=== PATIENT | female | born 1990 | race Caucasian/White ===

== ENCOUNTER 2016-12-28 00:54 | Emergency (ER) | payer SELFPAY ==
[2016-12-28 02:23] LABS: ABSOLUTE EOSINOPHILS # (AUTO) 0.1 10^3/uL (0.0-0.6); ABSOLUTE LYMPHOCYTES (AUTO) 1.8 10^3/uL (0.5-4.7); ABSOLUTE MONOCYTES (AUTO) 0.6 10^3/uL (0.1-1.4); ABSOLUTE NEUT (AUTO) 6.6 10^3/uL (1.7-8.2); BASOPHILS % (AUTO) 0.5 % (0-2); EOSINOPHILS % (AUTO) 1.2 % (0-6); HEMATOCRIT 41.2 % (36.0-47.0); HEMOGLOBIN 13.5 g/dL (12.0-15.5); HGB HCT DIFFERENCE -0.7; LYMPHOCYTES % (AUTO) 19.5 % (13-45); MEAN CORPUSCULAR HEMOGLOBIN 29.6 pg (27.0-33.4); MEAN CORPUSCULAR HGB CONC 32.7 g/dL (32.0-36.0); MEAN CORPUSCULAR VOLUME 91 fl (80-97); MONOCYTES % (AUTO) 6.1 % (3-13); RED BLOOD COUNT 4.55 10^6/uL (3.72-5.28); RED CELL DISTRIBUTION WIDTH 14.1 % (11.5-14.0); SEGMENTED NEUTROPHILS % (AUTO) 72.7 % (42-78); WHITE BLOOD COUNT 9.1 10^3/uL (4.0-10.5)
[2016-12-28 02:39] LABS: ANION GAP 10 (5-19); BLOOD UREA NITROGEN 12 mg/dL (7-20); CALCIUM 9.5 mg/dL (8.4-10.2); CARBON DIOXIDE 25 mmol/L (22-30); CHLORIDE 105 mmol/L (98-107); CREATININE RESULT 0.71 mg/dL (0.52-1.25); GLUCOSE 92 mg/dL (75-110); POTASSIUM 3.9 mmol/L (3.6-5.0); SODIUM 139.7 mmol/L (137-145)
--- NOTE | 2016-12-28 04:39 | ER Document Report ---
ED General - General Chief Complaint: Vaginal Bleeding Stated Complaint: VAGINAL BLEEDING Time Seen by Provider: 12/28/16 01:52 Notes: Patient is a 26 year old female last menstrual period was approximately 3 weeks ago who presents with vaginal bleeding. States that this started several hours prior to arrival. States that she has bled through 2-3 pads since onset of bleeding. No history of similar symptoms. Patient believes she is having a miscarriage although she has not had a positive test at home. Notes some associated diffuse abdominal cramping. Nothing improves or worsens her symptoms. She has not seen her primary care doctor regarding today's concerns. Denies any fever, vomiting, diarrhea, shortness of breath. TRAVEL OUTSIDE OF THE [place] IN LAST 30 DAYS: No - Related Data Allergies/Adverse Reactions: No Known Allergies Allergy (Verified 12/28/16 01:02) Past Medical History - General Information source: Patient Last Menstrual Period: 12/07/16 - Social History Smoking Status: Never Smoker Frequency of alcohol use: None Drug Abuse: None Lives with: Spouse/Significant other Family History: DM Neurological Medical History: Reports: Hx Seizures - x1 during last possible medication side effect Renal/ Medical History: Denies: Hx Peritoneal Dialysis - Immunizations Hx Diphtheria, Pertussis, Tetanus Vaccination: Yes Review of Systems - Review of Systems Notes: Constitutional: Negative for fever. HENT: Negative for sore throat. Eyes: Negative for visual changes. Cardiovascular: Negative for chest pain. Respiratory: Negative for shortness of breath. Gastrointestinal: Positive for abdominal discomfort Genitourinary: Positive for hematuria Musculoskeletal: Negative for back pain. Skin: Negative for rash. Neurological: Negative for headaches, weakness or numbness. 10 point ROS negative except as marked above and in HPI. Physical Exam - Vital signs Vitals: Temp Pulse Resp BP Pulse Ox 98.6 F 91 20 146/83 H 100 12/28/16 01:02 12/28/16 01:02 12/28/16 01:02 12/28/16 01:02 12/28/16 01:02 Interpretation: Hypertensive Notes: PHYSICAL EXAMINATION: GENERAL: Well-appearing, well-nourished and in no acute distress. HEAD: Atraumatic, normocephalic. EYES: Pupils equal round and reactive to light, extraocular movements intact, sclera anicteric, conjunctiva are normal. ENT: nares patent, oropharynx clear without exudates. Moist mucous membranes. NECK: Normal range of motion, supple without lymphadenopathy LUNGS: Breath sounds clear to auscultation bilaterally and equal. No wheezes rales or rhonchi. HEART: Regular rate and rhythm without murmurs ABDOMEN: Soft, nontender, normoactive bowel sounds. No guarding, no rebound. No masses appreciated. : Scant amount of vaginal bleeding, clot at the cervical os EXTREMITIES: Normal range of motion, no pitting or edema. No cyanosis. NEUROLOGICAL: No focal neurological deficits. Moves all extremities spontaneously and on command. PSYCH: Normal mood, normal affect. SKIN: Warm, Dry, normal turgor, no rashes or lesions noted. Course - Re-evaluation Re-evalutation: 12/28/16 04:44 Patient presents with a mild amount of vaginal bleeding in the setting of an early first trimester . Transvaginal ultrasound is unable to visualize an intrauterine at this time. Minimal bleeding at time of pelvic exam. Os could not be visualized secondary a clot. She is Rh positive. Patient's abdominal exam is otherwise benign without any focal tenderness. I do not suspect an acute appendicitis, pyelonephritis, cystitis, or bowel obstruction. At this time I have informed the patient that she needs to return to the emergency department or the women's clinic in 48 hours for recheck of her quantitative beta hCG to assess whether or not this is a normal or a possible ectopic .At this time will discharge with return precautions and follow-up recommendations. Verbal discharge instructions given a the bedside and opportunity for questions given. Medication warnings reviewed. Patient is in agreement with this plan and has verbalized understanding of return precautions and the need for primary care follow-up in the next 24-72 hours. - Vital Signs Vital signs: Temp Pulse Resp BP Pulse Ox 98.6 F 91 20 146/83 H 100 12/28/16 01:02 12/28/16 01:02 12/28/16 01:02 12/28/16 01:02 12/28/16 01:02 - Laboratory Result Diagrams: 12/28/16 02:14 12/28/16 02:14 Laboratory results interpreted by me: 12/28/16 12/28/16 02:14 02:14 RDW 14.1 H Beta HCG, Quant 4573.90 H - Diagnostic Test Radiology reviewed: Reports reviewed Discharge - Discharge Clinical Impression: of unknown anatomic location, Bleeding from genital tract during Condition: Good Disposition: HOME, SELF-CARE Additional Instructions: You need to return to the ED or the women's health clinic in 48 hours for a recheck of your hormone level. The ultrasound is unable to locate your at this time. Please return if you develop severe abdominal pain , bleeding that goes through more than 3 pads for more than 3 hours, pass out, or have any other symptoms that are concerning to you. Contact the Women's clinic on Thursday and ask for a Thursday appointment. Inform them that you were in the ED, have a of unknown location, and need a recheck of your hormone level and possibly a repeat ultrasound. Referrals: CARLOS BARNES MD [ACTIVE STAFF] - 12/30/16
--- NOTE | 2016-12-28 04:43 | RADIOLOGY REPORT (SQ) ---
EXAM DESCRIPTION: U/S OB TRANSVAGINAL W/O DOP COMPLETED DATE/TIME: 12/28/2016 4:20 am REASON FOR STUDY: bleeding, pos preg test COMPARISON: None. TECHNIQUE: Transvaginal static and realtime grayscale images acquired of the pelvis. Additional krysta cted color Doppler images recorded. All images stored on PACs. [facility] [place] LIMITATIONS: None. FINDINGS: UTERUS: The uterus measures 11.2 x 6.0 x 5.4 cm. The endometrium is heterogeneous with a hypoechoic area measuring 0.7 x 0.8 x 0.5 cm. A complex heterogeneous area at the external cervical os is measuring 3.3 x 2.5 cm. RIGHT ADNEXA: The right ovary measures 2.0 x 1.8 x 1.2 cm. Flow by Doppler was shown to the right ov marisa. No adnexal free fluid or adnexal masses were identified. LEFT ADNEXA: The left ovary measures 2.0 x 1.8 x 1.4 cm. Flow by Doppler was shown to the left ovary . No adnexal free fluid or adnexal masses were identified. FREE FLUID: None. IMPRESSION: Heterogeneous endometrium with a subcentimeter hypoechoic area, differential considerati ons include: blood products, early intrauterine gestational sac,pseudo gestational sac of a nonvisual ized ectopic . Followup ultrasound and serial beta HCG strongly recommended to accurately a ssess status. Complex heterogeneous area at the external cervical os, may represent blood products. Please correla te with clinical exam. TECHNICAL DOCUMENTATION: JOB ID: [id number] [employer]- All Rights Reserved
[2016-12-28 05:14] VITALS: BP 115/62
== END 2016-12-28 05:15 | disposition home or self-care (01) ==
LOC: ER 00:54
DX: O20.9 Hemorrhage in early pregnancy, unspecified (principal); O26.891 Other specified pregnancy related conditions, first trimester; R10.84 Generalized abdominal pain; Z3A.00 Weeks of gestation of pregnancy not specified
CPT/HCPCS: 36415; 76817; 80048; 84702; 85025; 99284

== ENCOUNTER 2017-01-23 13:29 | Inpatient (IN) | payer SELFPAY ==
--- NOTE | 2017-01-23 15:24 | ER Document Report ---
ED Medical Screen (RME) - General TRAVEL OUTSIDE OF THE U[place] IN LAST 30 DAYS: No <JAKI RIVAS - Last Filed: 01/23/17 14:54> <LILLY GOMEZ - Last Filed: 01/23/17 21:25> - General Chief Complaint: Abdominal Cramping Stated Complaint: ABDOMINAL CRAMPING Time Seen by Provider: 01/23/17 14:49 Notes: Patient is a 26 year old female presenting to the emergency department for abdominal cramping and some vaginal spotting. Patient was seen in December for a possible miscarriage. Patient did have a miscarriage at that time and yesterday she had her Hcg level checked yesterday and her levels were in the 1999s. Patient has had sexual intercourse since her miscarriage and has not had a regular menstrual cycle since. Patient is A1. Patient possibly has a new . (JAKI RIVAS) - Related Data Allergies/Adverse Reactions: No Known Allergies Allergy (Verified 01/23/17 13:49) Past Medical History Neurological Medical History: Reports: Hx Seizures - x1 during last possible medication side effect Renal/ Medical History: Denies: Hx Peritoneal Dialysis - Immunizations Hx Diphtheria, Pertussis, Tetanus Vaccination: Yes <JAKI RIVAS - Last Filed: 01/23/17 14:54> Physical Exam <JAKI RIVAS - Last Filed: 01/23/17 14:54> <LILLY GOMEZ - Last Filed: 01/23/17 21:25> - Vital signs Vitals: Temp Pulse Resp BP Pulse Ox 98.3 F 84 16 127/59 H 100 01/23/17 13:48 01/23/17 13:48 01/23/17 13:48 01/23/17 13:48 01/23/17 13:48 - Notes Notes: GENERAL: Alert, interacts well. No acute distress. LUNGS: Clear to auscultation bilaterally, no wheezes, rales, or rhonchi. No respiratory distress. HEART: Regular rate and rhythm. No murmurs, gallops, or rubs. ABDOMEN: Mild LLQ tenderness to palpation. Non-distended. Bowel sounds present in all 4 quadrants. (JAKI RIVAS) Course - Laboratory Result Diagrams: 01/23/17 15:35 01/23/17 15:35 <LILLY GOMEZ - Last Filed: 01/23/17 21:25> - Vital Signs Vital signs: Temp Pulse Resp BP Pulse Ox 98.3 F 86 16 130/70 H 97 01/23/17 13:48 01/23/17 18:35 01/23/17 18:35 01/23/17 18:35 01/23/17 18:35 - Laboratory Laboratory results interpreted by me: 01/23/17 01/23/17 01/23/17 15:00 15:35 15:35 Total Protein 8.3 H Beta HCG, Quant 2593.40 H Urine Blood SMALL H Urine Urobilinogen 2.0 H Doctor's Discharge <JAKI RIVAS - Last Filed: 01/23/17 14:54> <LILLY GOMEZ - Last Filed: 01/23/17 21:25> - Discharge Clinical Impression: Ovarian mass, right Scribe Documentation - Scribe Written by Scribe:: Finn Estevez 01/23/17 15:30 acting as scribe for :: Gilbert <JAKI RIVAS - Last Filed: 01/23/17 14:54>
[2017-01-23 15:45] LABS: ABSOLUTE BASOPHILS # (AUTO) 0.1 10^3/uL (0.0-0.2); ABSOLUTE EOSINOPHILS # (AUTO) 0.1 10^3/uL (0.0-0.6); ABSOLUTE LYMPHOCYTES (AUTO) 1.8 10^3/uL (0.5-4.7); ABSOLUTE MONOCYTES (AUTO) 0.4 10^3/uL (0.1-1.4); ABSOLUTE NEUT (AUTO) 6.9 10^3/uL (1.7-8.2); BASOPHILS % (AUTO) 0.6 % (0-2); EOSINOPHILS % (AUTO) 0.8 % (0-6); HEMATOCRIT 37.5 % (36.0-47.0); HEMOGLOBIN 12.6 g/dL (12.0-15.5); HGB HCT DIFFERENCE 0.3; LYMPHOCYTES % (AUTO) 19.7 % (13-45); MEAN CORPUSCULAR HEMOGLOBIN 29.8 pg (27.0-33.4); MEAN CORPUSCULAR HGB CONC 33.7 g/dL (32.0-36.0); MEAN CORPUSCULAR VOLUME 88 fl (80-97); MONOCYTES % (AUTO) 4.8 % (3-13); RED BLOOD COUNT 4.25 10^6/uL (3.72-5.28); RED CELL DISTRIBUTION WIDTH 13.7 % (11.5-14.0); SEGMENTED NEUTROPHILS % (AUTO) 74.1 % (42-78); WHITE BLOOD COUNT 9.3 10^3/uL (4.0-10.5)
[2017-01-23 16:00] LABS: ALANINE AMINOTRANSFERASE 29 U/L (9-52); ALBUMIN 4.7 g/dL (3.5-5.0); ALKALINE PHOSPHATASE 88 U/L (38-126); ANION GAP 11 (5-19); ASPARTATE AMINO TRANSFERASE 21 U/L (14-36); BILIRUBIN,DIRECT 0.3 mg/dL (0.0-0.4); BILIRUBIN,TOTAL 0.5 mg/dL (0.2-1.3); BLOOD UREA NITROGEN 12 mg/dL (7-20); CALCIUM 9.4 mg/dL (8.4-10.2); CARBON DIOXIDE 25 mmol/L (22-30); CHLORIDE 103 mmol/L (98-107); CREATININE RESULT 0.69 mg/dL (0.52-1.25); GLUCOSE 87 mg/dL (75-110); POTASSIUM 4.3 mmol/L (3.6-5.0); SODIUM 139.3 mmol/L (137-145); TOTAL PROTEIN 8.3 g/dL (6.3-8.2)
[2017-01-23 16:48] LABS: APPEARANCE,URINE CLEAR; BILIRUBIN,URINE NEGATIVE (NEGATIVE); GLUCOSE, URINE NEGATIVE (NEGATIVE); KETONES,URINE NEGATIVE (NEGATIVE); LEUKOCYTE ESTERASE,URINE NEGATIVE (NEGATIVE); NITRITE,URINE NEGATIVE (NEGATIVE); PROTEIN,URINE NEGATIVE (NEGATIVE); URINE SPECIFIC GRAVITY 1.014
--- NOTE | 2017-01-23 16:57 | RADIOLOGY REPORT (SQ) ---
EXAM DESCRIPTION: U/S OB TRANSVAG W/DOPPLER COMPLETED DATE/TIME: 01/23/2017 4:31 pm REASON FOR STUDY: preg, vag bld, cramping COMPARISON: 12/28/2016 TECHNIQUE: Dynamic and static grayscale images acquired of the pelvis via transvaginal approach and recorded on PACS. Additional selected color Doppler and spectral images recorded. LIMITATIONS: None. FINDINGS: UTERUS: Contour normal. No mass. ENDOMETRIAL STRIPE: No IUP is identified. CERVIX: No nabothian cysts. RIGHT OVARY: Complex cystic area is identified with internal echoes and debris measuring 5.0 x 5.2 x 4.7 cm. RIGHT OVARY DOPPLER: Normal arterial vascular flow without evidence for torsion. LEFT OVARY: Left ovary is not visualized. FREE FLUID: None noted. OTHER: No other significant finding. MEASUREMENTS: UTERUS: 10.2 x 6.1 x 6.2 cm RIGHT OVARY: 5.7 x 5.7 x 5.9 cm LEFT OVARY: Not visualized IMPRESSION: Complex cystic area in the right ovary as noted above. The differential possibilities w ould include a corpus lutein cyst or hemorrhagic cyst or other complex cyst, an endometrioma, and wit h an increasing HCG the possibility of an ectopic gestation cannot be excluded. No intrauterine IUP is identified. Clinical correlation and followup is recommended TECHNICAL DOCUMENTATION: JOB ID: [id number]- All Rights Reserved
--- NOTE | 2017-01-23 19:15 | ER Document Report ---
ED GI/ - General Chief Complaint: Abdominal Cramping Stated Complaint: ABDOMINAL CRAMPING Time Seen by Provider: 01/23/17 14:49 Notes: Patient is here because she is having vaginal spotting and cramping. She was here at the end of December and had an ultrasound and labs and was told that she had had a miscarriage. Her quantitative beta-hCG on that visit was 4574. She was subsequently seen at her [facility] office and had a quant HCG level of about 900. Then, patient had a repeat quantitative hCG yesterday that was in the low 2000s. She was advised to come to the emergency department for reevaluation. A repeat ultrasound here tonight shows a large cystic structure in the right ovary and no evidence of a anywhere. Her quantitative hCG here today is in the mid 1999s. Patient denies any fevers. No UTI symptoms. Has never had any surgeries. She has 3 living children at home. TRAVEL OUTSIDE OF THE [place] IN LAST 30 DAYS: No - Related Data Allergies/Adverse Reactions: No Known Allergies Allergy (Verified 01/23/17 13:49) Home Medications: Current Home Medications No Home Medications 01/23/17 [History] Past Medical History - Social History Smoking Status: Current Every Day Smoker Chew tobacco use (# tins/day): No Frequency of alcohol use: Occasional Drug Abuse: None Family History: DM Neurological Medical History: Reports: Hx Seizures - x1 during last possible medication side effect - Immunizations Hx Diphtheria, Pertussis, Tetanus Vaccination: Yes Review of Systems - Review of Systems Notes: REVIEW OF SYSTEMS: CONSTITUTIONAL : Denies fever. EENT: Denies eye, ear, nose or mouth or throat pain or other symptoms. CARDIOVASCULAR: Denies chest pain. RESPIRATORY: Denies cough, chest congestion, or shortness of breath. GASTROINTESTINAL: Denies abdominal pain except for some mild lower midline cramping. Denies nausea, vomiting, or diarrhea. GENITOURINARY: Denies difficulty or painful urinating, urinary frequency, blood in urine. Having some vaginal spotting. MUSCULOSKELETAL: Denies back or neck pain. Denies joint pain or swelling. SKIN: Denies rash or skin lesions. NEUROLOGICAL: Denies LOC or altered mental status. Denies headache. Denies sensory loss or motor deficits. ALL OTHER SYSTEMS REVIEWED AND NEGATIVE. Physical Exam - Vital signs Vitals: Temp Pulse Resp BP Pulse Ox 98.3 F 84 16 127/59 H 100 01/23/17 13:48 01/23/17 13:48 01/23/17 13:48 01/23/17 13:48 01/23/17 13:48 Interpretation: Normal - Notes Notes: PHYSICAL EXAMINATION: GENERAL: Well-appearing, in no acute distress. HEAD: Atraumatic, normocephalic. NECK: Normal range of motion, supple. LUNGS: Breath sounds clear and equal bilaterally. HEART: Regular rate and rhythm without murmurs. ABDOMEN: Soft, nontender. No guarding or rebound. No masses felt. BACK: No tenderness throughout entire back. EXTREMITIES: Normal range of motion without pain. NEUROLOGICAL: Normal speech, normal gait. Normal sensory, motor, and reflex exams. Awake, alert, and oriented x3. Cranial nerves normal. SKIN: Warm, dry, no rashes. Course - Re-evaluation Re-evalutation: 01/23/17 20:[address] Little, who is on-call for this patient's medical practice. He came to the emergency department to evaluate the patient and offered her several treatment right knee plans. Patient wishes to have a scope tonight and that will be the plan. - Vital Signs Vital signs: Temp Pulse Resp BP Pulse Ox 98.3 F 86 16 130/70 H 97 01/23/17 13:48 01/23/17 18:35 01/23/17 18:35 01/23/17 18:35 01/23/17 18:35 - Laboratory Result Diagrams: 01/23/17 15:35 01/23/17 15:35 Laboratory results interpreted by me: 01/23/17 01/23/17 01/23/17 15:00 15:35 15:35 Total Protein 8.3 H Beta HCG, Quant 2593.40 H Urine Blood SMALL H Urine Urobilinogen 2.0 H - Diagnostic Test Radiology reviewed: Image reviewed, Reports reviewed - Ultrasound of the pelvis shows a fairly large cystic structure in the right ovary. No evidence of intrauterine or extrauterine. Discharge - Discharge Clinical Impression: Ovarian mass, right Condition: Stable Disposition: ADMITTED OBSERVATION Admitting Provider: [facility] Admitted: Labor and Delivery
--- NOTE | 2017-01-23 20:29 | HISTORY AND PHYSICAL E ---
History and Physical NAME: RENETTA BLAKE : 1990 AGE: 26Y ADMITTED: 01/23/2017 ROOM: HISTORY OF PRESENT ILLNESS: This patient is a 26-year-old female 3, para 3, presenting with a complicated medical history. She was seen last month and thought to have a miscarriage from the ER with clot of 4,500, empty uterus. Followup was arranged and once again in the office, thought to have a miscarriage. Her test was followed and fell to 900 on 01/09. A repeat test two weeks later was 2142 which was a surprise. The patient was called and she presented to the ER. At the ER today, her test is 2593 and continues to have the empty uterus and there is a 5 cm complex cystic area in the right adnexa. Differential diagnosis included corpus luteum, endometrioma, ectopic. PAST MEDICAL HISTORY: Significant for a remote seizure disorder. FINANCIAL ADVOCATE HISTORY: Reveals last menstrual period of 12/06/2016. She had an abnormal pap smear in 2006. STD of chlamydia in 2006. OB HISTORY: She reports three living children, one miscarriage. PAST SURGICAL HISTORY: None. ALLERGIES: DICLEGIS. PHYSICAL EXAMINATION: VITAL SIGNS: She is afebrile. Vital signs are stable. GENERAL: Alert and oriented and appropriate. NECK: Supple. LUNGS: Clear. HEART: Regular rate and rhythm. ABDOMEN: Soft. Interestingly she is nontender in right or left lower quadrant. EXTREMITIES: Shows no clubbing, cyanosis, or edema. LABORATORY DATA: Ultrasound has been described. ASSESSMENT: Adnexal mass, inappropriate rising HCG, empty uterus. Suspicious is she may have a right ectopic. She states she is leaving for [place] on Thursday as well. We have discussed the options of admitting and watching with repeated HCG and ultrasound verses proceeding with laparoscopy tonight. She would like to go ahead and proceed with the laparoscopy at this point. We have discussed risks including the possibility of bleeding, infection, injury to bowel, bladder, blood vessels, nerves, ureters, risk of anesthesia. DICTATING PHYSICIAN: LINK BLAKE M.D. [id number] PHY#: [id number] ID: [id number] JOB#: [id number] ACCT: [id number] cc: >
[2017-01-23] MEDS ORDERED: RINGERS SOLUTION,LACTATED 1,000 ML IV PRN (20:32)
[2017-01-23] MEDS ORDERED: GLUCAGON,HUMAN RECOMB 1 MG INJ SUBCUT PRN (22:56)
[2017-01-23] MEDS ORDERED: DEXTROSE 50%-WATER 25 GM/50 ML DISP.SYRIN IV PRN ×2 (22:56)
[2017-01-23] MEDS ORDERED: DEXTROSE 40% GEL 15 GM TUBE PO PRN ×2 (22:56)
--- NOTE | 2017-01-24 06:40 | RADIOLOGY REPORT (SQ) ---
EXAM DESCRIPTION: U/S OB TRANSVAG W/DOPPLER COMPLETED DATE/TIME: 01/24/2017 6:25 am REASON FOR STUDY: Ectopic vs Intrauterine COMPARISON: None. TECHNIQUE: Transvaginal static and realtime grayscale images acquired of the pelvis. Additional krysta cted spectral and color Doppler images recorded. All images stored on PACs. [facility] [place] LIMITATIONS: None. FINDINGS: FETUS: No intrauterine identified on this study. No pole, yolk sac, or g estational sac seen. EGA: Not applicable EDUARD: Not applicable FHR: Not applicable SUBCHORIONIC BLEED: No. SIZE OF BLEED: Not applicable. UTERUS: No masses. No anomalies. Generalized thickening of the endometrium. CERVICAL LENGTH: 3.4 cm Closed. RIGHT ADNEXA: There is a large cystic structure seen in the low left ovary with thin septations measu ring 5.2 x 4.4 x 4.5 cm, similar to prior study. No adnexal free fluid. No adnexal masses. LEFT ADNEXA: Normal ovary with normal vascular flow. No adnexal free fluid. No adnexal masses. FREE FLUID: None. OTHER: No other significant finding. IMPRESSION: No IUP identified on this study. No ultrasonic evidence of ectopic . There is a large small complex cystic structure seen in the right ovary measuring 5.2 x 4.4 x 4.5 cm, similar to prior study from 01/23/2017. Again the differential for this lesion includes corpus luteum, hemor rhagic cyst, endometrioma, or other complex cyst. Continued follow-up recommended. Trimester of : First - 0 to 13 weeks. TECHNICAL DOCUMENTATION: JOB ID: [id number] [employer]- All Rights Reserved
[2017-01-24 11:14] VITALS: BP 100/56
--- NOTE | 2017-01-24 11:24 | PDOC DISCHARGE SUMMARY ---
General - Admit/Disc Date/PCP Admission Date/Primary Care Provider: 01/23/17 19:26 ROXANNE DENNEY MD Discharge Date: 01/24/17 - Discharge Diagnosis (1) Ovarian mass, right Is this a current diagnosis for this admission?: Yes (2) Is this a current diagnosis for this admission?: Yes (3) Encounter for assessment for suspected ectopic Is this a current diagnosis for this admission?: Yes - Additional Information Resuscitation Status: Full Code Discharge Diet: As Tolerated Discharge Activity: Activity As Tolerated Home Medications: No Home Medications 01/23/17 History of Present Illness Patient complains of: suspected . History of Present Illness: RENETTA BLAKE is a 26 year old female who had been followed in the office for an apparent spontaneous 2 weeks ago with a decrease in her BHCG to 972. a 2 wk follow up BHCG was 2140 on 01/22/2017. At ER on 01/23/2017 BHCG had risen to 2593. Today a repeat BHCG was 2132. Sono has failed to reveal an IUP and instead has shown a stable adnexal mass fluid filled on the right measuring approximately 5 cm. Patient denies any symptoms of ectopic . Hospital Course Hospital Course: as above in HPI Physical Exam - Physical Exam Vital Signs: Temp Pulse Resp BP Pulse Ox 98.1 F 64 16 100/46 L 99 01/24/17 07:38 01/24/17 07:38 01/24/17 07:38 01/24/17 07:38 01/24/17 07:38 General appearance: PRESENT: no acute distress Head exam: PRESENT: atraumatic GI/Abdominal exam: PRESENT: soft Result Laboratory Results: 01/23/17 20:45 Blood Type AB POSITIVE Antibody Screen NEGATIVE Impressions: Transvaginal US 01/24/17 06:00 IMPRESSION: No IUP identified on this study. No ultrasonic evidence of ectopic . There is a large small complex cystic structure seen in the right ovary measuring 5.2 x 4.4 x 4.5 cm, similar to prior study from 2016. Again the differential for this lesion includes corpus luteum, hemorrhagic cyst, endometrioma, or other complex cyst. Continued follow-up recommended. Trimester of : First - 0 to 13 weeks. Plan Discharge Plan: D/W patient and her SO regarding her clinical picture. Discussed that likelihood of normal is extremely remote. Offered four options for making diagnosis: 1) continued observation with serial exams and close follow up with BHCG levels 2) Methotrexate to resolve abnormal with follow up on days 4 and 7 with repeat bloodwork 3) Operative D&C with pathologic review of possible retained products from her apparent recent SAB 4) Operative D&C with pathologic review of possible retained products AND diagnostic laparoscope Radha Naranjo RN was present for this part of the discussion. Patient indicates that she is leaving for vacation tomorrow and is concerned that she will miss that. I offered options to accomodate that including the methotrexate with lab slips for follow up bhcg levels she could have drawn at a local lab at her vacation area. After leaving the room to allow her and her SO time to discuss I returned to the room with Lawanda Lebron RN as witness. Patient stated that "since no one knows what they are doing, I want to leave to get a second opinion." I reinforced the dangers of ectopic and rupture. patient inquired about GTD which she found after online google search. I did discuss with her that that was a possibility but that it is a very rare condition. If it was determined to be the case she would need to see a SEISMOMETER OPERATOR Oncologist. She and her SO indicated they understood. Time Spent: Greater than 30 Minutes
== END 2017-01-24 11:45 | disposition home or self-care (01) | DRG 761 ==
LOC: ER 13:29 → EH 19:26 → 2N 22:17
PROVIDERS: ADMIT Obstetrics & Gynecology; ATTEND Obstetrics & Gynecology
DX: N83.11 Corpus luteum cyst of right ovary (principal); N80.1 Endometriosis of ovary; N83.201 Unspecified ovarian cyst, right side; F17.210 Nicotine dependence, cigarettes, uncomplicated; Z88.8 Allergy status to other drugs, medicaments and biological substances; Z80.7 Family history of other malignant neoplasms of lymphoid, hematopoietic and related tissues; Z80.0 Family history of malignant neoplasm of digestive organs; Z83.3 Family history of diabetes mellitus; Z82.49 Family history of ischemic heart disease and other diseases of the circulatory system
CPT/HCPCS: 36415; 76817; 80053; 81001; 84702; 85025; 86850; 86900; 86901; 93976; 99285; J7120

== ENCOUNTER → 2017-02-06 | Outpatient (CLI) | payer MEDICAID, OTHER | LOC: OD 09:20 | PROVIDERS: ATTEND Obstetrics & Gynecology | DX: O20.0 Threatened abortion (principal) | CPT/HCPCS: 36415; 84702 ==

== ENCOUNTER 2017-03-10 18:44 | Emergency (ER) | payer MEDICAID, OTHER ==
[2017-03-10 20:24] LABS: ABSOLUTE LYMPHOCYTES (AUTO) 1.6 10^3/uL (0.5-4.7); ABSOLUTE MONOCYTES (AUTO) 0.6 10^3/uL (0.1-1.4); ABSOLUTE NEUT (AUTO) 8.5 10^3/uL (1.7-8.2); BASOPHILS % (AUTO) 0.4 % (0-2); EOSINOPHILS % (AUTO) 0.4 % (0-6); HEMATOCRIT 28.7 % (36.0-47.0); HEMOGLOBIN 9.6 g/dL (12.0-15.5); HGB HCT DIFFERENCE 0.1; LYMPHOCYTES % (AUTO) 14.5 % (13-45); MEAN CORPUSCULAR HEMOGLOBIN 27.7 pg (27.0-33.4); MEAN CORPUSCULAR HGB CONC 33.4 g/dL (32.0-36.0); MEAN CORPUSCULAR VOLUME 83 fl (80-97); MONOCYTES % (AUTO) 5.3 % (3-13); RED BLOOD COUNT 3.46 10^6/uL (3.72-5.28); RED CELL DISTRIBUTION WIDTH 13.3 % (11.5-14.0); SEGMENTED NEUTROPHILS % (AUTO) 79.4 % (42-78); WHITE BLOOD COUNT 10.7 10^3/uL (4.0-10.5)
[2017-03-10] MEDS ORDERED: NORMAL SALINE 1000 ML 1,000 ML IV ONE (20:26)
[2017-03-10] MEDS ORDERED: ONDANSETRON HCL INJ/PF 4 MG/2 ML SDV IV ONE (20:27)
[2017-03-10 20:42] LABS: ALANINE AMINOTRANSFERASE 32 U/L (9-52); ALBUMIN 3.8 g/dL (3.5-5.0); ALKALINE PHOSPHATASE 63 U/L (38-126); ANION GAP 11 (5-19); ASPARTATE AMINO TRANSFERASE 18 U/L (14-36); BILIRUBIN,DIRECT 0.3 mg/dL (0.0-0.4); BILIRUBIN,TOTAL 0.5 mg/dL (0.2-1.3); BLOOD UREA NITROGEN 10 mg/dL (7-20); CALCIUM 8.9 mg/dL (8.4-10.2); CARBON DIOXIDE 23 mmol/L (22-30); CHLORIDE 103 mmol/L (98-107); CREATINE KINASE 87 U/L (30-135); CREATININE RESULT 0.73 mg/dL (0.52-1.25); GLUCOSE 86 mg/dL (75-110); POTASSIUM 4.2 mmol/L (3.6-5.0); SODIUM 136.9 mmol/L (137-145); TOTAL PROTEIN 6.9 g/dL (6.3-8.2)
[2017-03-10 20:47] LABS: APPEARANCE,URINE CLOUDY; BILIRUBIN,URINE NEGATIVE (NEGATIVE); GLUCOSE, URINE NEGATIVE (NEGATIVE); KETONES,URINE NEGATIVE (NEGATIVE); LEUKOCYTE ESTERASE,URINE NEGATIVE (NEGATIVE); NITRITE,URINE NEGATIVE (NEGATIVE); PROTEIN,URINE 100 mg/dL (NEGATIVE); URINE SPECIFIC GRAVITY 1.027
[2017-03-10 20:54] LABS: TROPONIN I 0.021 ng/mL
[2017-03-10 20:56] LABS: CREATINE KINASE MB < 0.22 ng/mL (<4.55)
--- NOTE | 2017-03-10 22:33 | ER Document Report ---
ED General - General Chief Complaint: Dizziness Stated Complaint: POSSIBLE SYNCOPE Time Seen by Provider: 03/10/17 19:11 TRAVEL OUTSIDE OF THE [place] IN LAST 30 DAYS: No - HPI Patient complains to provider of: Dizziness near syncope Notes: Patient coming in for evaluation of dizziness or syncope. Patient states recently started vaginal bleeding. Patient is unaware currently of her status. Patient states she is a . Patient denies any recent travel denies any recent trauma. Patient states recently started having vaginal bleeding whenever she went to the bathroom had a gush of blood became very lightheaded and dizzy. Patient states this is new for her. Patient denies any chest pain shortness of breath upon my evaluation patient is resting comfortably no signs of any obvious distress. Patient denies any changes in medications. - Related Data Allergies/Adverse Reactions: No Known Allergies Allergy (Verified 01/23/17 13:49) Past Medical History - Social History Smoking Status: Never Smoker Family History: DM Neurological Medical History: Reports: Hx Seizures - x1 during last possible medication side effect Renal/ Medical History: Denies: Hx Peritoneal Dialysis Psychiatric Medical History: Denies: Hx Depression - Immunizations Hx Diphtheria, Pertussis, Tetanus Vaccination: Yes Review of Systems - Review of Systems Constitutional: No symptoms reported EENT: No symptoms reported Cardiovascular: Syncope - Near-syncope Respiratory: No symptoms reported Gastrointestinal: No symptoms reported Genitourinary: No symptoms reported Female Genitourinary: No symptoms reported Musculoskeletal: No symptoms reported Skin: No symptoms reported Hematologic/Lymphatic: No symptoms reported Neurological/Psychological: No symptoms reported Physical Exam - Vital signs Vitals: Temp Pulse Resp BP Pulse Ox 98.2 F 94 16 114/70 99 03/10/17 18:54 03/10/17 18:54 03/10/17 18:54 03/10/17 18:54 03/10/17 18:54 Interpretation: Normal - General General appearance: Appears well, Alert - HEENT Head: Normocephalic, Atraumatic Eyes: Normal Pupils: PERRL - Respiratory Respiratory status: No respiratory distress Chest status: Nontender Breath sounds: Normal Chest palpation: Normal - Cardiovascular Rhythm: Regular Heart sounds: Normal auscultation Murmur: No - Abdominal Inspection: Normal Distension: No distension Bowel sounds: Normal Tenderness: Nontender Organomegaly: No organomegaly - Back Back: Normal, Nontender - Extremities General upper extremity: Normal inspection, Nontender, Normal color, Normal ROM , Normal temperature General lower extremity: Normal inspection, Nontender, Normal color, Normal ROM , Normal temperature, Normal weight bearing. No: Gregor's sign - Neurological Neuro grossly intact: Yes Cognition: Normal Orientation: AAOx4 [place] Coma Scale Eye Opening: Spontaneous [place] Coma Scale Verbal: Oriented [place] Coma Scale Motor: Obeys Commands Jesse Coma Scale Total: 15 Speech: Normal Motor strength normal: LUE, RUE, LLE, RLE Sensory: Normal - Psychological Associated symptoms: Normal affect, Normal mood - Skin Skin Temperature: Warm Skin Moisture: Dry Skin Color: Normal Course - Re-evaluation Re-evalutation: 03/10/17 23:26 Upon further evaluation the patient's past medical record shows patient was recently evaluated for ectopic patient was scheduled for a laparotomy however this did not occur patient was started on medications for possible ectopic and looks like patient more likely signed out AGAINST MEDICAL ADVICE from the [facility] service. I did ask the patient about this however patient is not very forthcoming with information At this time patient does have slight elevation in her beta hCGs. Will perform another ultrasound evaluation. 03/10/17 23:48 03/10/17 23:49 Patient coming in for evaluation of vaginal bleeding. Patient does have still a positive beta-hCG however decreasing from her previous visits today is 24. Patient's ultrasound results were discussed with [facility] on-call doctor [place] who notes patient well. Agrees with assessment and plan have the patient discharged follow-up with [facility] for further evaluation and agrees with plan start patient on iron tablets. Discussed with patient patient states she will follow-up. - Vital Signs Vital signs: Temp Pulse Resp BP Pulse Ox 98.2 F 76 16 107/63 98 03/10/17 18:54 03/10/17 20:50 03/10/17 19:23 03/10/17 20:50 03/10/17 19:23 - Laboratory Result Diagrams: 03/10/17 20:10 03/10/17 20:10 Laboratory results interpreted by me: 03/10/17 03/10/17 03/10/17 20:00 20:10 20:10 WBC 10.7 H RBC 3.46 L Hgb 9.6 L Hct 28.7 L Seg Neutrophils % 79.4 H Absolute Neutrophils 8.5 H Sodium 136.9 L Beta HCG, Quant 24.11 H Urine Protein 100 H Urine Blood LARGE H Urine Urobilinogen 2.0 H Discharge - Discharge Clinical Impression: Vaginal bleeding, Near syncope, Elevated serum hCG Anemia Qualifiers: Anemia type: unspecified type Qualified Code(s): D64.9 - Anemia, unspecified Condition: Good Instructions: Near Syncopal Episode ([facility]), Anemia ([facility]), Vaginal Bleeding ([facility]) Additional Instructions: Your lab results today showed decreasing in your hormone. This will still need to be followed by her [facility] until it reaches 0. Your lab work does show signs of anemia we will start you on iron tablets. Please follow-up with [facility] in the week. Return to the ER if any symptoms worsen. Drink plenty water stay hydrated Prescriptions: Ascorbic Acid [Vitamin C] 500 mg PO DAILY PRN #1 pkg PRN Reason: Ferrous Sulfate [Iron] 325 mg PO DAILY #30 tablet Referrals: CARLOS BARNES MD [Primary Care Provider] - Follow up in 3-5 days
--- NOTE | 2017-03-10 23:33 | RADIOLOGY REPORT (SQ) ---
EXAM DESCRIPTION: U/S OB TRANSVAG W/DOPPLER COMPLETED DATE/TIME: 03/10/2017 11:02 pm REASON FOR STUDY: hx of ectopic near syncope COMPARISON: None. TECHNIQUE: Dynamic and static grayscale images acquired of the pelvis via transvaginal approach and recorded on PACS. Additional selected color Doppler and spectral images recorded. LIMITATIONS: None. FINDINGS: UTERUS: Contour normal. No mass. ENDOMETRIAL STRIPE: Heterogeneous endometrium with generalized thickening and hypervascularity, there is a small area of apparent active bleeding on the real-time cine loops. CERVIX: 2.9 cm length. No nabothian cysts. RIGHT OVARY: No abnormal masses. RIGHT OVARY DOPPLER: Normal arterial vascular flow without evidence for torsion. LEFT OVARY: No abnormal masses. LEFT OVARY DOPPLER: Normal arterial vascular flow without evidence for torsion. FREE FLUID: None noted. OTHER: No other significant finding. MEASUREMENTS: UTERUS: 9.7 x 7.0 x 5.6 cm ENDOMETRIAL STRIPE: 1.7 cm RIGHT OVARY: 3.0 x 1.9 x 1.5 cm LEFT OVARY: 2.8 x 2.4 x 2.5 cm IMPRESSION: Heterogeneous endometrium with generalized thickening and hypervascularity, there is a s mall area of apparent active bleeding on the real-time cine loops. Conference And Event Organiser consultation is recommended. TECHNICAL DOCUMENTATION: JOB ID: [id number] [employer]- All Rights Reserved
[2017-03-11 01:26] VITALS: BP 118/52
--- NOTE | 2017-03-11 07:58 | EKG REPORT ---
SEVERITY:- NORMAL ECG - SINUS RHYTHM : Confirmed by: Anthony Hewitt MD 11-Mar-2017 07:58:35
== END 2017-03-11 01:20 | disposition home or self-care (01) ==
LOC: ER 18:44
DX: R55 Syncope and collapse (principal); N93.8 Other specified abnormal uterine and vaginal bleeding; D64.9 Anemia, unspecified; R42 Dizziness and giddiness
CPT/HCPCS: 93005; 99285; 96361; 96374; 36415; 82553; 82550; 84702; 85025; 80053; 81001; 84484; 76817; 93976; 93010; J2405; J7030